=== PATIENT | male | born 1995 | race Caucasian/White ===

== ENCOUNTER 2017-06-05 20:17 | Emergency (ER) | payer OTHER ==
[~2017-06-05] VITALS: Ht 188 cm; Wt 36.7 kg
[2017-06-05 20:22] VITALS: TEMP 36.7; Ht 188 cm; Wt 36.7 kg
[2017-06-05] MEDS ORDERED: SODIUM CHLORIDE 0.9% 1000ML 1,000 ML IV STA (20:39)
[2017-06-05] MEDS ORDERED: SODIUM CHLORIDE 0.9% 1000ML 1,000 ML IV ONE (20:39)
[2017-06-05 21:05] LABS: BASO % 0.9 %; BASO ABS # 0.07 K/uL (0-0.2); EOS % 1.9 %; EOS ABS # 0.15 K/uL (0-0.5); HEMATOCRIT 42.8 % (42-52); HEMOGLOBIN 15.1 g/dL (14.0-18.0); IG# 0.01 K/uL (0.00-0.02); LYMPH % 21.1 %; LYMPH ABS # 1.64 K/uL (1.2-3.4); MEAN CELL VOLUME 85.4 fL (80-100); MEAN CORPUSCULAR HEMOGLOBIN 30.1 pg (25-34); MEAN CORPUSCULAR HGB CONC 35.3 g/dl (32-36); MEAN PLATELET VOLUME 10.7 fL (7.4-10.4); MONO % 7.6 %; MONO ABS # 0.59 K/uL (0.11-0.59); NEUT % 68.4 %; NEUT ABS # 5.31 K/uL (1.4-6.5); PLATELET COUNT 229 K/uL (130-400); RED CELL DISTRIBUTION WIDTH SD 40.6 fL (36.4-46.3); WHITE BLOOD COUNT 7.77 K/uL (4.8-10.8)
[2017-06-05 21:27] LABS: ALBUMIN 4.7 gm/dl (3.4-5.0); ALT/SGPT 35 U/L (12-78); BLOOD UREA NITROGEN 20 mg/dl (7-18); CALCIUM 9.5 mg/dl (8.5-10.1); CARBON DIOXIDE 24 mmol/L (21-32); GLUCOSE 106 mg/dl (70-99); LIPASE 72 U/L (73-393); POTASSIUM 3.4 mmol/L (3.5-5.1); SODIUM 137 mmol/L (136-145)
[2017-06-05 21:38] LABS: ALKALINE PHOSPHATASE 74 U/L (45-117); AST/SGOT 21 U/L (15-37); TOTAL PROTEIN 8.1 gm/dl (6.4-8.2)
--- NOTE | 2017-06-05 22:01 | DIAGNOSTIC IMAGING REPORT ---
CHEST ONE VIEW PORTABLE CLINICAL HISTORY: Atypical chest pain COMPARISON STUDY: None FINDINGS: The heart is at the upper limits of normal in size. There is no failure. There is no focal pulmonary consolidation. There are no pleural effusions.[ IMPRESSION: No active disease in the chest. Electronically signed by: Shay Anton M.D. 06/05/2017 10:00 PM Dictated Date/Time: 06/05/2017 9:59 PM
[2017-06-05 22:17] VITALS: BP 122/81; PULSE 88; O2SAT 99
--- NOTE | 2017-06-06 01:07 | EMERGENCY ROOM VISIT NOTE ---
History Report prepared by Thea: Allen Ramachandran Under the Supervision of: Dr. Samuel Johnson M.D. First contact with patient: 20:27 Chief Complaint: ANXIETY Stated Complaint: cp,sob,n History of Present Illness The patient is a 22 year old male who presents to the Emergency Room with complaints of intermittent pains and "palpitations" in his chest that began while he was studying at the library earlier today, a few hours ago. The patient started his history by noting that he is under a significant amount of stress with school. He noted that his is a double major, and is involved in several different clubs. The patient' symptoms started with a "pain" in his chest, which then developed into "palpitations" as he was walking to get a salad. The patient then started to feel "light headed in shaky." The patient denies any trauma, headache, or abdominal pain. He did drink 2 cups of coffee today, which he notes is normal for him. Source of History: patient Onset: a few hours ago Position: chest Quality: other (Palpitations) Timing: intermittent Associated Symptoms: No headache, No abdominal pain Review of Systems See HPI for pertinent positives & negatives. A total of 10 systems reviewed and were otherwise negative. Past Medical & Surgical Old medical records were attempted to be reviewed but there are no old records at this hospital. Nurse's notes were reviewed and I agree with. No significant medical history. Denies cardiac disease, thyroid disease, blood clots, lung disease Family History FHx: hyperlipidemia Social History Smoking Status: Never Smoker Marital Status: in relationship Housing Status: lives with roommate Occupation Status: student Current/Historical Medications No Active Prescriptions or Reported Meds Allergies Coded Allergies: No Known Allergies (Unverified , 06/05/17) Physical Exam Vital Signs Date Time Temp Pulse Resp B/P (MAP) Pulse Ox O2 Delivery O2 Flow Rate FiO2 06/05/17 22:17 88 21 122/81 99 Room Air 06/05/17 20:22 36.7 92 18 179/92 97 Room Air Physical Exam General: Non-ill appearing young male, mildly anxious. HEENT: Normal cephalic atraumatic. Pupils are equal round and reactive to light. Extraocular movements are intact. Oropharynx is pink with moist mucous membranes. No swelling of the mouth lips or tongue. Neck: Supple with a midline trachea. No meningeal signs or stiffness, no JVD or bruits. No Stridor. Chest: Clear to auscultation bilaterally. No wheezes or rhonchi. No increased work of breathing. Heart: regular rate and rhythm. Abdomen: Soft nontender, nondistended without rebound guarding or rigidity. Extremities: No cyanosis clubbing or edema. No calf tenderness or assymetry Spine/Back. Non tender to palpation. No CVA tenderness Skin: Good turgor without rashes. Neurologic exam: Cranial nerves two through 12 are intact. Motor and sensation are intact and symmetrical throughout. No tremor Medical Decision & Procedures ER Provider Diagnostic Interpretation: Radiology results as stated below per my review and radiologist interpretation: CHEST ONE VIEW PORTABLE CLINICAL HISTORY: Atypical chest pain COMPARISON STUDY: None FINDINGS: The heart is at the upper limits of normal in size. There is no failure. There is no focal pulmonary consolidation. There are no pleural effusions.[ IMPRESSION: No active disease in the chest. Electronically signed by: Shay Anton M.D. 06/05/2017 10:00 PM Dictated Date/Time: 06/05/2017 9:59 PM CHEST ONE VIEW PORTABLE CLINICAL HISTORY: Atypical chest pain COMPARISON STUDY: No previous studies for comparison. FINDINGS: The heart is at the upper limits of normal in size. There is no failure. Increased left basal markings while nonspecific are likely atelectatic. The upper lung zones are clear.[ No pleural effusions are visualized. There is a calcified granuloma at the left lung base. IMPRESSION: Nonspecific left basilar opacities, likely atelectatic, although an infectious/inflammatory process could appear similar. No evidence of failure. Electronically signed by: Shay Anton M.D. 06/05/2017 9:08 PM Dictated Date/Time: 06/05/2017 9:07 PM Laboratory Results 06/05/17 20:50 Red Blood Count 5.01, Mean Corpuscular Volume 85.4, Mean Corpuscular Hemoglobin 30.1, Mean Corpuscular Hemoglobin Concent 35.3, Mean Platelet Volume 10.7, Neutrophils (%) (Auto) 68.4, Lymphocytes (%) (Auto) 21.1, Monocytes (%) (Auto) 7.6, Eosinophils (%) (Auto) 1.9, Basophils (%) (Auto) 0.9, Neutrophils # (Auto) 5.31, Lymphocytes # (Auto) 1.64, Monocytes # (Auto) 0.59, Eosinophils # (Auto) 0.15, Basophils # (Auto) 0.07 06/05/17 20:50 Test 06/05/17 20:50 White Blood Count 7.77 K/uL (4.8-10.8) Red Blood Count 5.01 M/uL (4.7-6.1) Hemoglobin 15.1 g/dL (14.0-18.0) Hematocrit 42.8 % (42-52) Mean Corpuscular Volume 85.4 fL (80-100) Mean Corpuscular Hemoglobin 30.1 pg (25-34) Mean Corpuscular Hemoglobin Concent 35.3 g/dl (32-36) Platelet Count 229 K/uL (130-400) Mean Platelet Volume 10.7 fL (7.4-10.4) Neutrophils (%) (Auto) 68.4 % Lymphocytes (%) (Auto) 21.1 % Monocytes (%) (Auto) 7.6 % Eosinophils (%) (Auto) 1.9 % Basophils (%) (Auto) 0.9 % Neutrophils # (Auto) 5.31 K/uL (1.4-6.5) Lymphocytes # (Auto) 1.64 K/uL (1.2-3.4) Monocytes # (Auto) 0.59 K/uL (0.11-0.59) Eosinophils # (Auto) 0.15 K/uL (0-0.5) Basophils # (Auto) 0.07 K/uL (0-0.2) RDW Standard Deviation 40.6 fL (36.4-46.3) RDW Coefficient of Variation 13.0 % (11.5-14.5) Immature Granulocyte % (Auto) 0.1 % Immature Granulocyte # (Auto) 0.01 K/uL (0.00-0.02) D-Dimer < 190 ug/L FEU (0-500) Anion Gap 10.0 mmol/L (3-11) Est Creatinine Clear Calc Drug Dose 46.7 ml/min Estimated GFR () 90.4 Estimated GFR (Non- 78.0 BUN/Creatinine Ratio 15.1 (10-20) Calcium Level 9.5 mg/dl (8.5-10.1) Total Bilirubin 0.4 mg/dl (0.2-1) Direct Bilirubin < 0.1 mg/dl (0-0.2) Aspartate Amino Transf (AST/SGOT) 21 U/L (15-37) Alanine Aminotransferase (ALT/SGPT) 35 U/L (12-78) Alkaline Phosphatase 74 U/L (45-117) Total Protein 8.1 gm/dl (6.4-8.2) Albumin 4.7 gm/dl (3.4-5.0) Lipase 72 U/L (73-393) Thyroid Stimulating Hormone (TSH) 1.010 uIu/ml (0.300-4.500) Laboratory studies as stated above per my review. Medications Administered Medications (Trade) Dose Ordered Sig/Rupert Route Start Time Stop Time Status Last Admin Dose Admin Sodium Chloride 1,000 ml @ 999 mls/hr Q1H1M STAT IV 06/05/17 20:39 06/05/17 21:39 DC 06/05/17 21:01 999 MLS/HR Sodium Chloride 1,000 ml @ 150 mls/hr Q6H40M ONCE IV 06/05/17 20:39 06/05/17 22:46 DC 06/05/17 21:01 150 MLS/HR ECG Per My Interpretation Indication: palpitations Rate (beats per minute): 87 Rhythm: sinus with SA Findings: other (No PVCs, No HEATHER/STD) Comparison ECG Date: no prior available ED Course 2031: Past medical records reviewed. The patient was evaluated in room B4B, and a complete history and physical examination were performed. 2038: Ordered Sodium Chloride 1000 mL @ 150 mL/hr IV, Sodium Chloride 1000 mL @ 999 mL/hr IV. Medical Decision Differential diagnosis includes; anxiety, arrhythmia, acute coronary syndrome, thyroid disorder, electrolyte or metabolic abnormality, pulmonary embolism. This patient comes in as described above. He was placed in room before. He is here for treatment and evaluation of feeling anxious and having a rapid heart rate. He is been or a lot of stress. He looks well on exam except for being mildly anxious. His exam is unremarkable. EKG does not suggest acute coronary syndrome or arrhythmia. He has no elevation of his cardiac biomarkers and she has nothing to suggest acute coronary syndrome. His d-dimer is negative and in a low pretest probability setting makes PE highly unlikely. He has no acute electrolyte or metabolic abnormalities. Chest x-ray is unremarkable does not suggest congestive heart failure, pneumonia, or pneumothorax. He he was reassured and was offered medication for anxiety but he said he would rather not take this. I encouraged him follow-up with the [facility] rest and drink plenty fluids. return if : worsening symptoms, any new problems or concerns. He is happy the plan and discharged to home. Medication Reconcilliation Current Medication List: was personally reviewed by me Blood Pressure Screening Patient's blood pressure: Elevated blood pressure Blood pressure disposition: Elevated BP felt to be situational Impression Primary Impression: Epigastric pain Additional Impression: Anxiety Scribe Attestation The scribe's documentation has been prepared under my direction and personally reviewed by me in its entirety. I confirm that the note above accurately reflects all work, treatment, procedures, and medical decision making performed by me. Departure Information Prescriptions No Active Prescriptions or Reported Meds Forms HOME CARE DOCUMENTATION FORM, IMPORTANT VISIT INFORMATION Patient Instructions My [facility] Additional Instructions Rest. Drink plenty of fluids. Return if: Worsening of symptoms, current to symptoms, chest pain, shortness of breath fever or chills, any new problems or concerns Follow-up with your doctor in 1-2 days for recheck Problem Qualifiers
== END 2017-06-05 22:41 | disposition home or self-care (01) ==
LOC: C.EDB 20:21
DX: R10.13 Epigastric pain (principal); F41.9 Anxiety disorder, unspecified